=== PATIENT | female | born 1975 | race Hispanic/Latino ===

== ENCOUNTER 2019-05-01 11:29 | Inpatient (IN) | payer SELFPAY ==
[~2019-05-01] VITALS: Ht 167.6 cm; Wt 68.6 kg
[2019-05-01 11:58] LABS: APPEARANCE,URINE TURBID (CLEAR); BILIRUBIN,URINE SMALL (NEGATIVE); COLOR,URINE YELLOW (YELLOW); GLUCOSE, URINE (UA) NEGATIVE (NEGATIVE); KETONES,URINE 5 mg/dL (NEGATIVE); LEUKOCYTE ESTERASE ,URINE MODERATE (NEGATIVE); NITRATE,URINE NEGATIVE (NEGATIVE); OCCULT BLOOD,URINE LARGE (NEGATIVE); PROTEIN,URINE 30 mg/dL (NEGATIVE); UROBILINOGEN,URINE 0.2 mg/dL (0.2-1.0)
[2019-05-01 12:06] LABS: BASOPHILS % (AUTO) 0.3 % (0.0-5.0); HEMATOCRIT 21.3 % (36-48); LYMPHOCYTES % (AUTO) 3.9 % (21.0-51.0); MEAN CORPUSCULAR HEMOGLOBIN 15.4 pg (27.0-33.0); MEAN CORPUSCULAR HGB CONC 28.6 g/dL (32.0-36.0); MEAN CORPUSCULAR VOLUME 53.7 fL (79-99); MONOCYTES % (AUTO) 2.4 % (3.0-13.0); NEUTROPHILS % (AUTO) 93.4 % (40.0-77.0); PLATELET COUNT (AUTO) 330 K/uL (130-400); RED BLOOD CELL COUNT(AUTO) 3.97 MIL/uL (4.00-5.50); RED CELL DISTRIBUTION WIDTH 21.6 % (11.0-15.5); WHITE BLOOD COUNT (AUTO) 9.4 K/uL (4.8-10.8)
[2019-05-01 12:08] LABS: WBC,URINE 26-50 /HPF (0-1)
[2019-05-01 12:09] LABS: AMORPHOUS SEDIMENT,UR Moderate /LPF (None Seen); BACTERIA,URINE Moderate /HPF (None Seen); SQUAMOUS EPITHELIAL CELL,UR Few /HPF (0-2)
[2019-05-01 12:24] LABS: CREATININE 0.9 mg/dL (0.5-1.5); POTASSIUM 3.2 mmol/L (3.5-5.1)
[2019-05-01 12:25] LABS: INR 1.02 (0.85-1.15); PARTIAL THROMBOPLASTIN TIME 23.8 SEC (26.3-35.5); PROTHROMBIN TIME 10.7 SEC (9.6-11.6)
[2019-05-01 12:29] LABS: BILIRUBIN,TOTAL 1.2 mg/dL (0.2-1.0); TOTAL PROTEIN, SERUM 7.5 g/dL (6.0-8.3)
[2019-05-01 12:38] LABS: HCG,QUAL RESULT NEGATIVE (NEGATIVE)
[2019-05-01] MEDS ORDERED: SODIUM CHLORIDE 0.9% 1000ML 1,000 ML IV ONE ×3 (13:07→16:48)
[2019-05-01] MEDS ORDERED: LEVOFLOXACIN 500 MG/D5W 100 ML 100 ML ONE (13:23)
[2019-05-01 14:17] LABS: RETICULOCYTE % (AUTO) 2.27 % (0.42-2.23)
[2019-05-01] MEDS ORDERED: KETOROLAC TROMETHAMINE 30MG/ML ONE (14:26)
[2019-05-01 14:27] LABS: FERRITIN 2 ng/mL (15-150); IRON, SERUM 20 mcg/dL (50-170)
[2019-05-01] MEDS: SODIUM CHLORIDE 0.9% 1000ML 1,000 ML IV SCH ×2 (16:07→21:09)
[2019-05-01] MEDS: LEVOFLOXACIN 500 MG/D5W 100 ML 100 ML IV SCH (16:15)
[2019-05-01] MEDS ORDERED: HYDRALAZINE HCL 20 MG/ML VIAL IV PRN (16:15)
[2019-05-01] MEDS: METRONIDAZOLE 500MG/100ML BAG 100 ML IV SCH (16:15)
[2019-05-01] MEDS ORDERED: POTASSIUM CHLORIDE 20 MEQ ERTAB PO SCH (16:30)
[2019-05-01] MEDS ORDERED: METRONIDAZOLE 500MG/100ML BAG 100 ML ONE (16:47)
[2019-05-01] MEDS ORDERED: COMPOUND IV MISC 1 EACH IVSOLN MISC PRN (17:00)
[2019-05-01] MEDS ORDERED: POTASSIUM CHLORIDE 20 MEQ ERTAB PO ONE ×2 (17:01→17:14)
[2019-05-01] MEDS ORDERED: ACETAMINOPHEN 325 MG TAB ONE (17:21)
[2019-05-01] MEDS ORDERED: ONDANSETRON HCL 4 MG/2 ML VIAL ONE (17:21)
[2019-05-01 18:40] VITALS: BP 96/46
[2019-05-01 20:46] VITALS: BP 102/55
[2019-05-01 20:53] VITALS: BP 96/54
[2019-05-01] MEDS: FAMOTIDINE/PF 20 MG/2 ML VIAL IV SCH (21:09)
[2019-05-01] MEDS: ONDANSETRON HCL 4 MG/2 ML VIAL IV PRN (22:27)
[2019-05-01] MEDS: ACETAMINOPHEN 325 MG TAB PO PRN (22:30)
[2019-05-02 00:17] LABS: HEMATOCRIT 20.9 % (36-48)
[2019-05-02 00:21] VITALS: BP 95/48
[2019-05-02] MEDS: METRONIDAZOLE 500MG/100ML BAG 100 ML IV SCH ×4 (00:36→22:55)
[2019-05-02] MEDS: SODIUM CHLORIDE 0.9% 1000ML 1,000 ML IV SCH (00:38)
[2019-05-02] MEDS ORDERED: IBUPROFEN 400 MG TABLET ONE (00:49)
[2019-05-02] MEDS ORDERED: IBUPROFEN 600 MG TABLET PO ONE (01:00)
[2019-05-02] MEDS: IRON SUCROSE COMPLEX 100 MG in SODIUM CHLORIDE 0.9% 50 ML IV SCH ×2 (02:12→09:00)
[2019-05-02] MEDS ORDERED: SODIUM CHLORIDE 0.9% 500ML 500 ML IV ONE (04:05)
[2019-05-02 04:08] LABS: BASOPHILS % (AUTO) 0.4 % (0.0-5.0); LYMPHOCYTES % (AUTO) 5.8 % (21.0-51.0); MEAN CORPUSCULAR HEMOGLOBIN 17.8 pg (27.0-33.0); MEAN CORPUSCULAR HGB CONC 30.1 g/dL (32.0-36.0); MEAN CORPUSCULAR VOLUME 58.9 fL (79-99); MONOCYTES % (AUTO) 6.1 % (3.0-13.0); NEUTROPHILS % (AUTO) 87.7 % (40.0-77.0); NUCLEATED RED BLOOD CELLS 0.1 % (0.0-0.19); PLATELET COUNT (AUTO) 209 K/uL (130-400); RED BLOOD CELL COUNT(AUTO) 3.55 MIL/uL (4.00-5.50); RED CELL DISTRIBUTION WIDTH 27.7 % (11.0-15.5); WHITE BLOOD COUNT (AUTO) 8.3 K/uL (4.8-10.8)
[2019-05-02 04:15] LABS: HEMATOCRIT 20.9 % (36-48)
[2019-05-02 04:24] LABS: CREATININE 0.8 mg/dL (0.5-1.5); POTASSIUM 3.1 mmol/L (3.5-5.1)
[2019-05-02 04:38] VITALS: BP 84/46
[2019-05-02 07:00] VITALS: BP 80/47
[2019-05-02 09:18] LABS: HEMATOCRIT 23.9 % (36-48)
[2019-05-02] MEDS ORDERED: DIATR MEGLU/DIATRIZOATE SODIUM 30 ML BOTTLE ONE (09:33)
[2019-05-02] MEDS: ONDANSETRON HCL 4 MG/2 ML VIAL IV PRN ×2 (10:29→18:18)
[2019-05-02] MEDS: FAMOTIDINE/PF 20 MG/2 ML VIAL IV SCH ×2 (10:29→21:11)
[2019-05-02 11:00] VITALS: BP 79/45
--- NOTE | 2019-05-02 11:30 | NUR ---
PT HAS DIARRHEA-LOOSE BROWN. SPECIMEN COLLECTED AND SENT TO LAB FOR PCR/ROTOVIRUS. DR WATTS HAS SEEN PATIENT
[2019-05-02 14:24] LABS: HEMATOCRIT 23.2 % (36-48)
--- NOTE | 2019-05-02 14:37 | NUR ---
PT IS PENDING A CT ABDOMEN/PELVIS. SHE HAS TAKEN 2 GLASSES OF CONTRAST. RADIOLOGY INFORMED WITH CONTRAST. I ALSO HAVE BEEN CONTACTED BY DR GARZA AND HE HAS ASKED ME TO PREP PT FOR COLONOSCOPY AND EGD IN AM. ORDERS RECIEVED DR CALDWELL. DR GOETZ WAS INFORMED OF 7.4 HGB AND EGD/COLON PLAN. ALSO TOLD HIM NO IVF ORDERED AND SHE HAS DIARRHEA AND LOW POTASSIUM 3.1. IVF ORDERS RECEIVED.
[2019-05-02] MEDS ORDERED: IOHEXOL-350 75 ML VIAL IV ONE (15:05)
--- NOTE | 2019-05-02 15:53 | NUR ---
DC PLAN VISITED WITH PATIENT. PATIENT LIVES WITH DAUGHTER. INDEPENDENT ABLE TO PERFORM ADL'S. PATIENT HAS NO SERVICES OR DME'S. FEELS SAFE TO RETURN HOME. Addendum: 05/02/19 at 1557 by NATE MARTINEZ RN CM Amended: Links added.
[2019-05-02 16:00] VITALS: BP 98/60
[2019-05-02] MEDS ORDERED: PEG 3350/NA SULF,BICARB,CL/KCL 4000 ML SOLN PO SCH (16:00)
--- NOTE | 2019-05-02 16:11 | NUR ---
PT BACK FROM CT SCAN. STABLE
[2019-05-02] MEDS: CEFTRIAXONE SODIUM 1 GM IVP SCH (16:44)
[2019-05-02] MEDS: LEVOFLOXACIN 500 MG/D5W 100 ML 100 ML IV SCH (16:45)
[2019-05-02] MEDS: NS-20 MEQ KCL 1000ML 1,000 ML IV SCH (16:55)
--- NOTE | 2019-05-02 18:00 | NUR ---
PT TAKING GOLYTELY PREP. ENCOURAGED TO TAKE MORE GOLYTELY TOLERATED
[2019-05-02 19:46] VITALS: BP 100/62
[2019-05-02] MEDS: ACETAMINOPHEN 325 MG TAB PO PRN (21:12)
[2019-05-03] VITALS (21 sets, daily range): BP systolic 86–121; BP diastolic 46–70
[2019-05-03] MEDS: ONDANSETRON HCL 4 MG/2 ML VIAL IV PRN ×2 (04:39→21:06)
[2019-05-03 04:40] LABS: BASOPHILS % (AUTO) 0.9 % (0.0-5.0); EOSINOPHILS % (AUTO) 0.2 % (0.0-8.0); HEMATOCRIT 22.1 % (36-48); LYMPHOCYTES % (AUTO) 19.6 % (21.0-51.0); MEAN CORPUSCULAR HEMOGLOBIN 18.7 pg (27.0-33.0); MEAN CORPUSCULAR HGB CONC 30.9 g/dL (32.0-36.0); MEAN CORPUSCULAR VOLUME 60.7 fL (79-99); MONOCYTES % (AUTO) 10.6 % (3.0-13.0); NEUTROPHILS % (AUTO) 68.7 % (40.0-77.0); NUCLEATED RED BLOOD CELLS 0.9 % (0.0-0.19); PLATELET COUNT (AUTO) 165 K/uL (130-400); RED BLOOD CELL COUNT(AUTO) 3.64 MIL/uL (4.00-5.50); RED CELL DISTRIBUTION WIDTH 29.6 % (11.0-15.5); WHITE BLOOD COUNT (AUTO) 4.2 K/uL (4.8-10.8)
[2019-05-03 04:54] LABS: CREATININE 0.8 mg/dL (0.5-1.5); MAGNESIUM 1.7 mg/dL (1.80-2.40); PHOSPHORUS 2.6 mg/dL (2.5-4.9); POTASSIUM 3.4 mmol/L (3.5-5.1)
--- NOTE | 2019-05-03 05:23 | NUR ---
DR GARZA MADE AWARE HGB, K, MG. NO ORDERS RECEIVED
[2019-05-03] MEDS ORDERED: POTASSIUM CHLORIDE 20MEQ/100ML 100 ML IV PRN (05:30)
[2019-05-03] MEDS ORDERED: MAGNESIUM 2GM PREMIX 50ML 50 ML IV PRN (05:30)
[2019-05-03] MEDS ORDERED: LIDOCAINE HCL-MPF 1% 2ML VIAL IVP PRN (05:30)
--- NOTE | 2019-05-03 05:30 | NUR ---
NEHA CHRISTIANSON AWARE OF HBG OF 6.8, K 3.4, MG 1.7. SEE ORDERS
[2019-05-03] MEDS: NS-20 MEQ KCL 1000ML 1,000 ML IV SCH ×2 (06:11→09:13)
[2019-05-03] MEDS ORDERED: PROPOFOL 10 MG/ML 20ML VIAL IV ONE (06:53)
[2019-05-03 08:14] LABS: HEMATOCRIT 22.6 % (36-48)
[2019-05-03] MEDS: METRONIDAZOLE 500MG/100ML BAG 100 ML IV SCH (09:07)
[2019-05-03] MEDS: FAMOTIDINE/PF 20 MG/2 ML VIAL IV SCH ×2 (09:07→20:54)
[2019-05-03] MEDS ORDERED: POTASSIUM CHLORIDE 20 MEQ ERTAB PO SCH (14:00)
[2019-05-03] MEDS: CEFTRIAXONE SODIUM 1 GM IVP SCH (14:19)
[2019-05-03] MEDS: IRON SUCROSE COMPLEX 100 MG in SODIUM CHLORIDE 0.9% 50 ML IV SCH (14:20)
[2019-05-03 14:26] LABS: HEMATOCRIT 23.7 % (36-48)
[2019-05-03] MEDS: ACETAMINOPHEN 325 MG TAB PO PRN (20:56)
[2019-05-03] MEDS ORDERED: EPOETIN ALFA 10,000 UNIT/ML VIAL SQ SCH (21:00)
[2019-05-04 03:00] VITALS: BP 108/63
[2019-05-04 04:22] LABS: BASOPHILS % (AUTO) 0.5 % (0.0-5.0); EOSINOPHILS % (AUTO) 0.2 % (0.0-8.0); HEMATOCRIT 28.6 % (36-48); LYMPHOCYTES % (AUTO) 13.7 % (21.0-51.0); MEAN CORPUSCULAR HEMOGLOBIN 19.6 pg (27.0-33.0); MEAN CORPUSCULAR HGB CONC 30.3 g/dL (32.0-36.0); MEAN CORPUSCULAR VOLUME 64.5 fL (79-99); MONOCYTES % (AUTO) 9.2 % (3.0-13.0); NEUTROPHILS % (AUTO) 76.4 % (40.0-77.0); NUCLEATED RED BLOOD CELLS 0.3 % (0.0-0.19); PLATELET COUNT (AUTO) 197 K/uL (130-400); RED BLOOD CELL COUNT(AUTO) 4.43 MIL/uL (4.00-5.50); RED CELL DISTRIBUTION WIDTH 33.2 % (11.0-15.5); WHITE BLOOD COUNT (AUTO) 7.9 K/uL (4.8-10.8)
[2019-05-04 04:35] LABS: CREATININE 0.8 mg/dL (0.5-1.5); PHOSPHORUS 2.9 mg/dL (2.5-4.9); POTASSIUM 3.3 mmol/L (3.5-5.1)
[2019-05-04 07:00] VITALS: BP 105/64
[2019-05-04] MEDS: IRON SUCROSE COMPLEX 100 MG in SODIUM CHLORIDE 0.9% 50 ML IV SCH (08:41)
[2019-05-04] MEDS: ACETAMINOPHEN 325 MG TAB PO PRN ×2 (08:41→18:21)
[2019-05-04] MEDS: FAMOTIDINE/PF 20 MG/2 ML VIAL IV SCH ×2 (09:43→21:21)
[2019-05-04 11:00] VITALS: BP 97/60
[2019-05-04] MEDS: CEFTRIAXONE SODIUM 1 GM IVP SCH (15:47)
[2019-05-04 16:00] VITALS: BP 106/66
[2019-05-04 19:00] VITALS: BP 102/62
[2019-05-04 23:15] VITALS: BP 104/64
[2019-05-05 04:00] VITALS: BP 114/68
[2019-05-05 06:38] LABS: BASOPHILS % (AUTO) 0.4 % (0.0-5.0); EOSINOPHILS % (AUTO) 0.3 % (0.0-8.0); LYMPHOCYTES % (AUTO) 13.1 % (21.0-51.0); MEAN CORPUSCULAR HEMOGLOBIN 20.4 pg (27.0-33.0); MEAN CORPUSCULAR HGB CONC 31.5 g/dL (32.0-36.0); MEAN CORPUSCULAR VOLUME 64.9 fL (79-99); MONOCYTES % (AUTO) 9.7 % (3.0-13.0); NEUTROPHILS % (AUTO) 76.5 % (40.0-77.0); NUCLEATED RED BLOOD CELLS 0.3 % (0.0-0.19); PLATELET COUNT (AUTO) 194 K/uL (130-400); RED CELL DISTRIBUTION WIDTH 34.1 % (11.0-15.5); WHITE BLOOD COUNT (AUTO) 7.4 K/uL (4.8-10.8)
[2019-05-05] MEDS: ACETAMINOPHEN 325 MG TAB PO PRN (06:56)
[2019-05-05 06:58] LABS: CREATININE 0.8 mg/dL (0.5-1.5); POTASSIUM 3.2 mmol/L (3.5-5.1)
[2019-05-05 07:00] VITALS: BP 124/72
[2019-05-05] MEDS ORDERED: MORPHINE SULFATE 2 MG/ML 1ML SYG ONE (07:33)
[2019-05-05] MEDS: FAMOTIDINE/PF 20 MG/2 ML VIAL IV SCH ×2 (08:47→21:15)
--- NOTE | 2019-05-05 08:51 | NUR ---
BLD CX. DRAWN FOR T.> 101.5.
[2019-05-05 11:00] VITALS: BP 118/74
[2019-05-05] MEDS: IRON SUCROSE COMPLEX 100 MG in SODIUM CHLORIDE 0.9% 50 ML IV SCH (12:20)
[2019-05-05 16:00] VITALS: BP 106/72
[2019-05-05] MEDS: CEFTRIAXONE SODIUM 1 GM IVP SCH (16:25)
[2019-05-05] MEDS: MORPHINE SULFATE 2 MG/ML 1ML SYG IVP PRN (17:43)
[2019-05-05 19:22] VITALS: BP 120/72
[2019-05-06] VITALS: BP 110/71
[2019-05-06] MEDS ORDERED: POTASSIUM CHLORIDE 20MEQ/100ML 100 ML IV PRN (02:15)
[2019-05-06] MEDS ORDERED: POTASSIUM CHLORIDE 10% ELIXIR 20 MEQ/15 ML UDCUP PO PRN (02:15)
[2019-05-06] MEDS ORDERED: LIDOCAINE HCL-MPF 1% 2ML VIAL IVP PRN (02:15)
[2019-05-06 04:00] VITALS: BP 122/78
[2019-05-06 05:45] LABS: BASOPHILS % (AUTO) 1.1 % (0.0-5.0); EOSINOPHILS % (AUTO) 1.6 % (0.0-8.0); HEMATOCRIT 26.6 % (36-48); LYMPHOCYTES % (AUTO) 23.9 % (21.0-51.0); MEAN CORPUSCULAR HEMOGLOBIN 19.8 pg (27.0-33.0); MEAN CORPUSCULAR VOLUME 66.1 fL (79-99); MONOCYTES % (AUTO) 10.6 % (3.0-13.0); NEUTROPHILS % (AUTO) 62.8 % (40.0-77.0); NUCLEATED RED BLOOD CELLS 0.3 % (0.0-0.19); PLATELET COUNT (AUTO) 177 K/uL (130-400); RED BLOOD CELL COUNT(AUTO) 4.03 MIL/uL (4.00-5.50); RED CELL DISTRIBUTION WIDTH 34.9 % (11.0-15.5); WHITE BLOOD COUNT (AUTO) 5.8 K/uL (4.8-10.8)
[2019-05-06 06:07] LABS: CREATININE 0.8 mg/dL (0.5-1.5); POTASSIUM 3.6 mmol/L (3.5-5.1)
[2019-05-06 07:00] VITALS: BP 129/82
[2019-05-06] MEDS: FAMOTIDINE/PF 20 MG/2 ML VIAL IV SCH ×2 (07:55→20:25)
[2019-05-06] MEDS: MORPHINE SULFATE 2 MG/ML 1ML SYG IVP PRN ×2 (07:55→22:56)
--- NOTE | 2019-05-06 08:00 | NUR ---
AM ROUNDS, C/O OF ABD. PAIN, REQUESTING PAIN MED.
[2019-05-06] MEDS: IRON SUCROSE COMPLEX 100 MG in SODIUM CHLORIDE 0.9% 50 ML IV SCH (08:49)
[2019-05-06 11:00] VITALS: BP 134/84
--- NOTE | 2019-05-06 12:57 | NUR ---
Nutrition Intervention: Nutrition screen based on LOS x 5 days. Pt. admitted with Dx of Severe Sepsis due to UTI. Pt. on Regular diet with good p.o. intake, as per pt. Pt. reports does not eat B'fast but eats well at lunch and dinner. Labs reviewed(Alb 4.0). LBM: 05/06/19, loose. SR-24.4, normal. Recommendations: 1) Continue current diet. 2) Rec. anti-diarrheal medication to help relieve lower GI distress. 3) Continue to monitor pt's nutritional status. 4) Consult RD as nutrition concerns arise. Addendum: 05/06/19 at [address] Amended: Links added.
[2019-05-06] MEDS: CEFTRIAXONE SODIUM 1 GM IVP SCH (14:17)
[2019-05-06 16:00] VITALS: BP 121/65
[2019-05-06 19:18] VITALS: BP 121/81
[2019-05-07 00:14] VITALS: BP 127/84
[2019-05-07 04:15] VITALS: BP 124/73
[2019-05-07 06:37] LABS: BASOPHILS % (AUTO) 0.9 % (0.0-5.0); EOSINOPHILS % (AUTO) 1.5 % (0.0-8.0); HEMATOCRIT 26.5 % (36-48); LYMPHOCYTES % (AUTO) 23.8 % (21.0-51.0); MEAN CORPUSCULAR HGB CONC 31.4 g/dL (32.0-36.0); MEAN CORPUSCULAR VOLUME 66.7 fL (79-99); MONOCYTES % (AUTO) 7.6 % (3.0-13.0); NEUTROPHILS % (AUTO) 66.2 % (40.0-77.0); NUCLEATED RED BLOOD CELLS 0.5 % (0.0-0.19); PLATELET COUNT (AUTO) 203 K/uL (130-400); RED BLOOD CELL COUNT(AUTO) 3.98 MIL/uL (4.00-5.50); RED CELL DISTRIBUTION WIDTH 35.9 % (11.0-15.5)
[2019-05-07 07:00] VITALS: BP 110/70
[2019-05-07 07:25] LABS: CREATININE 0.7 mg/dL (0.5-1.5); POTASSIUM 3.4 mmol/L (3.5-5.1)
[2019-05-07] MEDS: IRON SUCROSE COMPLEX 100 MG in SODIUM CHLORIDE 0.9% 50 ML IV SCH (08:46)
--- NOTE | 2019-05-07 08:54 | NUR ---
STATES THIS IS ACTUALLY THE 1ST. TIME HER STOMACH DOESN'T HURT. SITTING IN CHAIR AND ENCOURAGED TO AMBULATE IN HALLWAY.
[2019-05-07] MEDS ORDERED: FAMOTIDINE 20MG TAB 20 MG TAB PO SCH (09:00)
[2019-05-07] MEDS: POTASSIUM CHLORIDE 20 MEQ ERTAB PO PRN ×2 (09:35→11:29)
[2019-05-07] MEDS ORDERED: LEVO500T2 PO (14:05)
--- NOTE | 2019-05-07 15:23 | NUR ---
DISCHARGED NOW USING TEACH BACK, RX. FOR LEVAQUIN GIVEN, WILL CALL OFFICE IN AM FOR A FOLLOW UP APPT. TO [facility]. SURGERY. NO C/O OR CONCERNS VOICED AT TIME OF DC.
== END 2019-05-07 15:30 | disposition home or self-care (01) | DRG 872 ==
LOC: EDH 11:29 → EDHIP 11:30 → 2DH 18:39 → 3CH 05-04 23:58
PROVIDERS: ADMIT Internal Medicine; ATTEND Internal Medicine
PROC: 30233N1 Transfusion of Nonautologous Red Blood Cells into Peripheral Vein, Percutaneous Approach (ICD-10-PCS; principal; 2019-05-01)
PROC: 0DBB8ZX Excision of Ileum, Via Natural or Artificial Opening Endoscopic, Diagnostic (ICD-10-PCS; 2019-05-01)
PROC: 0DBL8ZX Excision of Transverse Colon, Via Natural or Artificial Opening Endoscopic, Diagnostic (ICD-10-PCS; 2019-05-03)
PROC: 0DBP8ZX Excision of Rectum, Via Natural or Artificial Opening Endoscopic, Diagnostic (ICD-10-PCS; 2019-05-03)
PROC: 0DBF8ZX Excision of Right Large Intestine, Via Natural or Artificial Opening Endoscopic, Diagnostic (ICD-10-PCS; 2019-05-03)
PROC: 0DBG8ZX Excision of Left Large Intestine, Via Natural or Artificial Opening Endoscopic, Diagnostic (ICD-10-PCS; 2019-05-03)
PROC: 0DB98ZX Excision of Duodenum, Via Natural or Artificial Opening Endoscopic, Diagnostic (ICD-10-PCS; 2019-05-03)
PROC: 0DB68ZX Excision of Stomach, Via Natural or Artificial Opening Endoscopic, Diagnostic (ICD-10-PCS; 2019-05-03)
DX: A41.9 Sepsis, unspecified organism (principal); A04.5 Campylobacter enteritis; A09 Infectious gastroenteritis and colitis, unspecified; N39.0 Urinary tract infection, site not specified; E86.1 Hypovolemia; R19.09 Other intra-abdominal and pelvic swelling, mass and lump; D64.9 Anemia, unspecified; D50.9 Iron deficiency anemia, unspecified; K31.89 Other diseases of stomach and duodenum; Z88.0 Allergy status to penicillin; Z85.038 Personal history of other malignant neoplasm of large intestine; Z80.0 Family history of malignant neoplasm of digestive organs; Z83.3 Family history of diabetes mellitus; Z82.49 Family history of ischemic heart disease and other diseases of the circulatory system
CPT/HCPCS: 36415; 36430; 43239; 45380; 74177; 76856; 80048; 80053; 81001; 81025; 82150; 82270; 82550; 82607; 82728; 82746; 83540; 83605; 83630; 83690; 83735; 84100; 84484; 85014; 85018; 85025; 85045; 85610; 85730; 86304; 86850; 86900; 86901; 86922; 87040; 87046; 87088; 87177; 87324; 87425; 87507; 88305; 93005; G0378; J0696; J0885; J1756; J1885; J1956; J2405; J2704; J3475; J3480; J3490; J7030; J7040; P9016; Q9963; Q9967

== ENCOUNTER 2019-05-17 06:28 | Day surgery (SDC) | payer SELFPAY ==
[2019-05-17] VITALS (14 sets, daily range): BP systolic 100–117; BP diastolic 50–69
[~2019-05-17] VITALS: Ht 167.6 cm; Wt 64.5 kg
[~2019-05-17 06:28] MED LIST: LEVO500T2 PO
[2019-05-17 07:27] LABS: BASOPHILS % (AUTO) 1.5 % (0.0-5.0); EOSINOPHILS % (AUTO) 0.9 % (0.0-8.0); LYMPHOCYTES % (AUTO) 36.2 % (21.0-51.0); MEAN CORPUSCULAR HEMOGLOBIN 22.8 pg (27.0-33.0); MEAN CORPUSCULAR HGB CONC 31.4 g/dL (32.0-36.0); MEAN CORPUSCULAR VOLUME 72.6 fL (79-99); NEUTROPHILS % (AUTO) 49.4 % (40.0-77.0); NUCLEATED RED BLOOD CELLS 0.2 % (0.0-0.19); PLATELET COUNT (AUTO) 616 K/uL (130-400); RED CELL DISTRIBUTION WIDTH 39.7 % (11.0-15.5); WHITE BLOOD COUNT (AUTO) 2.9 K/uL (4.8-10.8)
[2019-05-17] MEDS ORDERED: LACTATED RINGERS 1000ML 1,000 ML IV ONE (07:37)
[2019-05-17 07:51] LABS: BASOPHILS % (MANUAL) 1 % (0-2); EOSINOPHILS % (MANUAL) 1 % (1-6); LYMPHOCYTES % (MANUAL) 41 % (22-44); MAN.DIFF COMMENT-IMPRESSION MANUAL DIFFERENTIAL; MONOCYTES % (MANUAL) 5 % (2-9); SEGMENTED NEUTROPHILS % 52 % (40-70)
[2019-05-17 07:52] LABS: PLATELET MORPHOLOGY COMMENT MARKED INCREASE
[2019-05-17] MEDS ORDERED: CALDOLOR 800MG+NS 250ML 250 ML IV ONE ×2 (07:53→08:02)
[2019-05-17] MEDS ORDERED: CEFAZOLIN SODIUM 1 GM VIAL ONE (08:41)
[2019-05-17] MEDS ORDERED: BUPIVACAINE/PF 0.25% 30ML VIAL IJ ONE (09:01)
[2019-05-17] MEDS ORDERED: MIDAZOLAM HCL 1 MG/ML 2ML VIAL ONE (09:44)
[2019-05-17] MEDS ORDERED: ONDANSETRON HCL 4 MG/2 ML VIAL ONE (09:44)
[2019-05-17] MEDS ORDERED: LIDOCAINE PF 2% 5ML ABBOJECT ONE (09:44)
[2019-05-17] MEDS ORDERED: DEXAMETHASONE SOD PHOSPHATE 10MG/ML 1ML VIAL ONE (09:44)
[2019-05-17] MEDS ORDERED: SUCCINYLCHOLINE 200MG/10ML SYR ONE (09:44)
[2019-05-17] MEDS ORDERED: GLYCOPYRROLATE 1 MG/5 ML SYRINGE ONE (09:44)
[2019-05-17] MEDS ORDERED: PROPOFOL 10 MG/ML 20ML VIAL IV ONE (09:45)
[2019-05-17] MEDS ORDERED: FENTANYL CITRATE PF 50 MCG/1 ML 2ML VIAL ONE ×2 (09:45→11:26)
[2019-05-17] MEDS ORDERED: ROCURONIUM 10MG/1ML SYR 10 MG/ML ML ONE ×2 (09:45→10:10)
[2019-05-17] MEDS ORDERED: NEOSTIGMINE 5MG/5ML SYR IV ONE (09:45)
[2019-05-17] MEDS ORDERED: MEPERIDINE-PF 25 MG/ML SYG ONE (12:02)
--- NOTE | 2019-05-17 13:10 | NUR ---
dc dc instructions given to pt's sister with rx, instructed to f/u with dr. chacon, on new med regimen and possible side effects of medications, pt will get ready then dc home with sister
--- NOTE | 2019-05-17 13:20 | NUR ---
dc pt dc home via [place], no distress noted , accompanied by sister
== END 2019-05-17 13:20 | disposition home or self-care (01) ==
LOC: DAH 06:28
DX: N83.8 Other noninflammatory disorders of ovary, fallopian tube and broad ligament (principal); N80.3 Endometriosis of pelvic peritoneum; Z88.0 Allergy status to penicillin; Z82.49 Family history of ischemic heart disease and other diseases of the circulatory system; Z83.3 Family history of diabetes mellitus; Z80.0 Family history of malignant neoplasm of digestive organs
CPT/HCPCS: 36415; 58661; 58662; 84703; 85025; 86850; 86900; 86901; 88305; 96365; A4215; A4351; A4510; A4600; A4649 ×3; A4930; C1769 ×2; G0168; J0330; J0690; J1100; J1741 ×2; J2001; J2175; J2250; J2405; J2704; J2710; J3010 ×2; J3490 ×2; J7030; J7120